=== PATIENT | female | born 1995 | race African-American/Black ===

== ENCOUNTER 2023-08-29 00:17 | Emergency (ER) | payer MEDICAID ==
[~2023-08-29] VITALS: Ht 167.6 cm; Wt 104.3 kg
== END 2023-08-29 01:33 | disposition left against medical advice (07) ==
LOC: ED 00:17
DX: O26.893 Other specified pregnancy related conditions, third trimester (principal); R10.2 Pelvic and perineal pain; Z53.29 Procedure and treatment not carried out because of patient's decision for other reasons; Z3A.00 Weeks of gestation of pregnancy not specified